=== PATIENT | male | born 1960 ===

== ENCOUNTER → 2023-11-30 11:01 | Outpatient (BNVA) | payer OTHER, SELFPAY | PROVIDERS: Visit Provider Student in an Organized Health Care Education/Training Program | DX: S52.121A Displaced fracture of head of right radius, initial encounter for closed fracture; X58.XXXA Exposure to other specified factors, initial encounter | CPT/HCPCS: 73060; 73080; 99204 ==

== ENCOUNTER 2023-12-08 13:49 | Outpatient (RCR) | payer OTHER, SELFPAY | END 2023-12-14 23:59 | disposition home or self-care (01) | LOC: SOT 13:49 | PROVIDERS: Visit Provider Student in an Organized Health Care Education/Training Program | DX: S52.121D Displaced fracture of head of right radius, subsequent encounter for closed fracture with routine healing (principal); X58.XXXD Exposure to other specified factors, subsequent encounter | CPT/HCPCS: 97110; 97166; 97530 ==

== ENCOUNTER 2023-12-15 06:00 | Outpatient (RCR) | payer OTHER, SELFPAY | END 2024-01-14 23:59 | disposition home or self-care (01) | LOC: SOT 06:00 | PROVIDERS: Visit Provider Student in an Organized Health Care Education/Training Program | DX: S52.121D Displaced fracture of head of right radius, subsequent encounter for closed fracture with routine healing (principal); X58.XXXD Exposure to other specified factors, subsequent encounter | CPT/HCPCS: 97022; 97110; G0283 ==

== ENCOUNTER → 2023-12-28 14:50 | Outpatient (BNVA) | payer OTHER, SELFPAY | PROVIDERS: Visit Provider Physician Assistant | DX: S52.121A Displaced fracture of head of right radius, initial encounter for closed fracture (principal); X58.XXXA Exposure to other specified factors, initial encounter; Z79.899 Other long term (current) drug therapy | CPT/HCPCS: 73060; 73080; 99213 ==